=== PATIENT | male | born 1950 | race Caucasian/White ===

== ENCOUNTER 2017-01-21 08:42 | Day surgery (SDC) ==
[2017-01-21] MEDS ORDERED: LIDOCAINE 1% 20 ML MDV ID ONE (10:00)
[2017-01-21] MEDS ORDERED: VERSED ONE (11:05)
[2017-01-21] MEDS ORDERED: DIPRIVAN 20 ML VIAL IVP ONE (11:05)
[2017-01-21 12:15] VITALS: BP 116/73; TEMP 98.6
--- NOTE | 2017-01-22 10:08 | OP ---
INDICATIONS FOR PROCEDURE: 66-year-old gentleman presents for endoscopy and colonoscopy. He has intermittent dysphagia to solid foods. He also has history of a large colon polyp dissected in 2009. His last colonoscopy was 2013. He has a history of adenomatous polyps and his mother had colon polyps in her 70s. MEDICATIONS: SEE ANESTHESIA NOTES. PROCEDURE: 1. ENDOSCOPY, [facility] [place] DILATATION 2. COLONOSCOPY, SNARE POLYPECTOMY REPORT: The risks, benefits, alternatives and limitations were discussed in detail with the patient. Informed consent was obtained. After adequate sedation was achieved, the video endoscope was introduced in the posterior pharynx and esophagus under direct vision. I easily advanced down to the second portion of the duodenum. I then slowly withdrew. The duodenal mucosa appeared unremarkable as did the duodenal bulb. The antrum and body were relatively unremarkable. scope was retroflexed to look at the cardia and fundus which was unremarkable. The scope was anteflexed and withdrawn back through the esophagus; this appeared normal. I advanced the scope back down the gastric lumen. I placed a guidewire and withdrew the scope. Over the guidewire, I easily passed a 54 [place] dilator. The patient tolerated the procedure well with stable vital signs and pulse oximetry throughout. The patient's bed was turned. A digital rectal exam revealed good tone, no masses. Colonoscope was introduced in the rectum and was advanced under direct visual guidance to the ileocolonic anastomosis. This appeared unremarkable. I then slowly withdrew the scope in a circumferential manner examining the mucosa quite carefully. I looked on the proximal and distal side of folds and flexures as best as possible. In the transverse colon there is either a sessile 5 or 6 mm polyp that I removed by snare technique. In the proximal rectum there was a raised 5 or 6 mm polyp that I removed by snare technique. No other abnormalities noted including on retroflex view of the anal canal. The prep was adequate. The withdrawal time was 11 minutes and 36 seconds. The patient tolerated the procedure well with stable vital signs and pulse oximetry throughout. IMPRESSION: 1. UNREMARKABLE UPPER ENDOSCOPY EXAM. 2. SUCCESSFUL PASSIVE DILATION OF THE ESOPHAGUS. 3. TWO (2) COLONIC POLYPS REMOVED. RECOMMENDATIONS: 1. Strict reflux precautions. 2. I advised him to cut and chew his food well. 3. Await colon polyp pathology. If everything is benign as expected, I recommend repeat colonoscopy examination again in 3 years, sooner if there are signs or symptoms to indicate otherwise. 4. Will see him back in the office as needed. CC: DR. FREDY CARNES
== END 2017-01-21 12:47 | disposition home or self-care (01) ==
LOC: SURG 08:42
PROVIDERS: ATTEND Internal Medicine Gastroenterology
DX: Z09 Encounter for follow-up examination after completed treatment for conditions other than malignant neoplasm (principal); Z86.010 Personal history of colon polyps; D12.7 Benign neoplasm of rectosigmoid junction; D12.3 Benign neoplasm of transverse colon; R13.10 Dysphagia, unspecified; Z83.71 Family history of colonic polyps